=== PATIENT | female | born 1965 | race Caucasian/White ===

== ENCOUNTER 2017-12-28 14:20 | Observation (INO) | payer BC, OTHER ==
[~2017-12-28] VITALS: Ht 167.6 cm; Wt 104.8 kg
[2017-12-28 14:50] LABS: BASOPHILS % (AUTO) 0.6 % (0.0-5.0); EOSINOPHILS % (AUTO) 1.2 % (0.0-8.0); LYMPHOCYTES % (AUTO) 17.6 % (21.0-51.0); MEAN CORPUSCULAR HEMOGLOBIN 30.7 pg (27.0-33.0); MEAN CORPUSCULAR HGB CONC 34.7 g/dL (32.0-36.0); MEAN CORPUSCULAR VOLUME 88.4 fL (79-99); MONOCYTES % (AUTO) 6.4 % (3.0-13.0); NEUTROPHILS % (AUTO) 74.2 % (40.0-77.0); PLATELET COUNT (AUTO) 271 K/uL (130-400); RED BLOOD CELL COUNT(AUTO) 4.42 MIL/uL (4.00-5.50); RED CELL DISTRIBUTION WIDTH 13.1 % (11.0-15.5); WHITE BLOOD COUNT (AUTO) 8.5 K/uL (4.8-10.8)
[2017-12-28 15:03] LABS: CREATININE 1.1 mg/dL (0.5-1.5); POTASSIUM 3.7 mmol/L (3.5-5.1)
[2017-12-28 15:11] LABS: ALBUMIN 3.8 g/dL (3.5-5.0); BILIRUBIN,TOTAL 0.4 mg/dL (0.2-1.0); TOTAL PROTEIN, SERUM 7.6 g/dL (6.0-8.3)
[2017-12-28] MEDS ORDERED: ONDANSETRON HCL 4 MG/2 ML VIAL IV PRN (17:30)
[2017-12-28] MEDS ORDERED: MORPHINE SULFATE 2 MG/ML 1ML SYG ONE (18:07)
[2017-12-28] MEDS ORDERED: ONDANSETRON HCL 4 MG/2 ML VIAL ONE (18:07)
[2017-12-28] MEDS ORDERED: ENOXAPARIN SODIUM 40 MG/0.4 ML SYRINGE SQ ONE (18:07)
[2017-12-28 18:37] LABS: CREATINE KINASE, TOTAL 78 U/L (21-232); MYOGLOBIN 31 ng/mL (10-92); TROPONIN I < 0.04 ng/mL (0.00-0.06)
[2017-12-28 20:04] VITALS: BP 137/76
[2017-12-28] MEDS: FAMOTIDINE 20MG TAB 20 MG TAB PO SCH (20:26)
[2017-12-28 21:05] LABS: APPEARANCE,URINE Clear (CLEAR); BILIRUBIN,URINE Negative (NEGATIVE); COLOR,URINE Yellow (YELLOW); GLUCOSE, URINE (UA) Negative (NEGATIVE); KETONES,URINE Negative (NEGATIVE); LEUKOCYTE ESTERASE ,URINE Negative (NEGATIVE); NITRATE,URINE Negative (NEGATIVE); OCCULT BLOOD,URINE Negative (NEGATIVE); PROTEIN,URINE Negative (NEGATIVE); UROBILINOGEN,URINE 0.2 mg/dL (0.2-1.0)
[2017-12-28] MEDS: MORPHINE SULFATE 2 MG/ML 1ML SYG IV PRN (21:54)
[2017-12-29] VITALS (7 sets, daily range): BP systolic 95–129; BP diastolic 57–85
[2017-12-29 01:35] LABS: BASOPHILS % (AUTO) 0.4 % (0.0-5.0); EOSINOPHILS % (AUTO) 2.1 % (0.0-8.0); HEMATOCRIT 36.1 % (36-48); LYMPHOCYTES % (AUTO) 38.8 % (21.0-51.0); MEAN CORPUSCULAR HEMOGLOBIN 30.7 pg (27.0-33.0); MEAN CORPUSCULAR HGB CONC 34.7 g/dL (32.0-36.0); MEAN CORPUSCULAR VOLUME 88.4 fL (79-99); MONOCYTES % (AUTO) 6.7 % (3.0-13.0); PLATELET COUNT (AUTO) 239 K/uL (130-400); RED BLOOD CELL COUNT(AUTO) 4.08 MIL/uL (4.00-5.50); RED CELL DISTRIBUTION WIDTH 13.1 % (11.0-15.5); WHITE BLOOD COUNT (AUTO) 7.2 K/uL (4.8-10.8)
[2017-12-29 01:53] LABS: CREATININE 0.8 mg/dL (0.5-1.5); POTASSIUM 4.6 mmol/L (3.5-5.1)
[2017-12-29 02:01] LABS: B-TYPE NATRIURETIC PEPTIDE 10 pg/mL (0-100); CREATINE KINASE, TOTAL 90 U/L (21-232); MYOGLOBIN 36 ng/mL (10-92); TROPONIN I < 0.04 ng/mL (0.00-0.06)
[2017-12-29] MEDS: MORPHINE SULFATE 2 MG/ML 1ML SYG IV PRN ×2 (04:02→22:27)
[2017-12-29] MEDS ORDERED: MV-M1TAB46 PO (09:25)
[2017-12-29] MEDS ORDERED: DULO60CA63 PO ×2 (09:25)
[2017-12-29] MEDS ORDERED: DEXT15DR27 OU (09:25)
[2017-12-29] MEDS ORDERED: BENZ200C53 PO (09:25)
[2017-12-29] MEDS ORDERED: OMEP40CA37 PO (09:25)
[2017-12-29] MEDS ORDERED: MONT10TA24 PO (09:25)
[2017-12-29] MEDS ORDERED: TRAM300C3 PO (09:25)
[2017-12-29] MEDS ORDERED: CALC-866 PO (09:25)
[2017-12-29] MEDS: FAMOTIDINE 20MG TAB 20 MG TAB PO SCH ×2 (09:35→21:48)
[2017-12-29] MEDS: ENOXAPARIN SODIUM 40 MG/0.4 ML SYRINGE SQ SCH (09:36)
[2017-12-29] MEDS: ACETAMINOPHEN 325 MG TAB PO PRN ×2 (09:36→18:46)
[2017-12-29 10:17] LABS: CREATINE KINASE, TOTAL 90 U/L (21-232); MYOGLOBIN 36 ng/mL (10-92); TROPONIN I < 0.04 ng/mL (0.00-0.06)
[2017-12-29] MEDS: ASPIRIN 325MG EC TAB 325 MG TABLET.DR PO SCH (18:43)
[2017-12-29] MEDS ORDERED: DULOXETINE HCL 30 MG CAP PO ONE (19:30)
[2017-12-30 03:00] VITALS: BP 113/67
[2017-12-30 03:46] LABS: BASOPHILS % (AUTO) 0.5 % (0.0-5.0); EOSINOPHILS % (AUTO) 2.7 % (0.0-8.0); HEMATOCRIT 36.8 % (36-48); LYMPHOCYTES % (AUTO) 47.1 % (21.0-51.0); MEAN CORPUSCULAR HEMOGLOBIN 30.5 pg (27.0-33.0); MEAN CORPUSCULAR HGB CONC 34.7 g/dL (32.0-36.0); MEAN CORPUSCULAR VOLUME 87.8 fL (79-99); MONOCYTES % (AUTO) 7.2 % (3.0-13.0); NEUTROPHILS % (AUTO) 42.5 % (40.0-77.0); NUCLEATED RED BLOOD CELLS 0.1 % (0.0-0.19); PLATELET COUNT (AUTO) 239 K/uL (130-400); RED CELL DISTRIBUTION WIDTH 13.3 % (11.0-15.5); WHITE BLOOD COUNT (AUTO) 5.5 K/uL (4.8-10.8)
[2017-12-30 04:06] LABS: ALBUMIN 3.4 g/dL (3.5-5.0); BILIRUBIN,DIRECT 0.1 mg/dL (0.0-0.3); BILIRUBIN,TOTAL 0.5 mg/dL (0.2-1.0); CREATININE 0.8 mg/dL (0.5-1.5)
[2017-12-30 07:58] VITALS: BP 122/73
[2017-12-30] MEDS: ASPIRIN 325MG EC TAB 325 MG TABLET.DR PO SCH (08:47)
[2017-12-30] MEDS: FAMOTIDINE 20MG TAB 20 MG TAB PO SCH (08:47)
[2017-12-30] MEDS: ENOXAPARIN SODIUM 40 MG/0.4 ML SYRINGE SQ SCH (08:51)
[2017-12-30] MEDS ORDERED: DULOXETINE HCL 30 MG CAP PO SCH (09:00)
[2017-12-30] MEDS: ACETAMINOPHEN 325 MG TAB PO PRN (11:10)
[2017-12-30] MEDS ORDERED: ATOR40TA69 PO (11:42)
[2017-12-30] MEDS ORDERED: ATORVASTATIN CALCIUM 20 MG TABLET PO SCH (11:45)
[2017-12-30] MEDS ORDERED: ASPI-1026 PO (12:02)
[2017-12-30 12:28] VITALS: BP 126/86
[2017-12-30] MEDS: MORPHINE SULFATE 2 MG/ML 1ML SYG IV PRN (14:19)
== END 2017-12-30 15:35 | disposition home or self-care (01) ==
LOC: EDH 14:20 → EDHIP 17:25 → 2DH 19:22
PROVIDERS: ADMIT Hospitalist; ATTEND Hospitalist
DX: R55 Syncope and collapse (principal); G43.B0 Ophthalmoplegic migraine, not intractable; G89.29 Other chronic pain; M54.9 Dorsalgia, unspecified; I50.9 Heart failure, unspecified; E66.9 Obesity, unspecified; F32.9 Major depressive disorder, single episode, unspecified; F41.9 Anxiety disorder, unspecified; Z82.49 Family history of ischemic heart disease and other diseases of the circulatory system; Z88.0 Allergy status to penicillin
CPT/HCPCS: 36415 ×3; 70450; 70544; 70551; 71045; 72125; 73600; 80048 ×2; 80053; 80061; 80076; 81003; 82550 ×3; 83874 ×3; 83880; 84484 ×4; 85025 ×3; 93005 ×4; 93880; 95819; 96372 ×2; 96374; 96375; 96376 ×2; 99285; A4510; G0378 ×46; J1650 ×3; J2405 ×2